=== PATIENT | male | born 1965 | race Caucasian/White ===

== ENCOUNTER 2021-07-12 09:31 | Emergency (ER) | payer OTHER ==
[2021-07-16 17:14] LABS: Lyme IgG/IgM AB <0.91 ISR (0.00-0.90)
== END 2021-07-12 10:55 | disposition home or self-care (01) ==
LOC: NAV ERS 09:31
DX: R50.9 Fever, unspecified (principal); F17.210 Nicotine dependence, cigarettes, uncomplicated; I10 Essential (primary) hypertension; Z79.899 Other long term (current) drug therapy
CPT/HCPCS: 86618; 99283